=== PATIENT | male | born 1975 | race Caucasian/White ===

== ENCOUNTER 2018-06-14 11:06 | Emergency (ER) | payer OTHER ==
[~2018-06-14] VITALS: Ht 170.2 cm; Wt 84.0 kg
[2018-06-14 11:12] VITALS: BP 125/77
[2018-06-14] MEDS ORDERED: BUPR-86 PO (11:36)
[2018-06-14] MEDS ORDERED: PANT20TA2 PO (11:36)
[2018-06-14] MEDS ORDERED: KETOROLAC 30 MG/1 ML ONE (11:42)
[2018-06-14] MEDS ORDERED: KETOROLAC 30 MG/1 ML IM ONE (12:00)
== END 2018-06-14 12:58 | disposition home or self-care (01) ==
LOC: ED 12:52
DX: M47.22 Other spondylosis with radiculopathy, cervical region (principal); M25.512 Pain in left shoulder; M54.6 Pain in thoracic spine; M79.602 Pain in left arm
CPT/HCPCS: 72050; 96372; 99284; J1885

== ENCOUNTER 2018-09-15 02:38 | Inpatient (IN) | payer OTHER ==
[~2018-09-15] VITALS: Ht 172.7 cm; Wt 91.0 kg
[~2018-09-15 02:38] MED LIST: BUPR-86 PO; PANT20TA2 PO
[2018-09-15] MEDS ORDERED: MORPHINE SULFATE 4 MG/ML, 1ML ONE ×2 (03:19→03:48)
[2018-09-15] MEDS ORDERED: ONDANSETRON ODT 4 MG ONE (03:19)
[2018-09-15] MEDS: MORPHINE SULFATE 4 MG/ML, 1ML IVPush PRN ×2 (03:23→03:54)
[2018-09-15 03:26] LABS: BASOPHILS # (AUTO) 0.12 x10^3/uL (0-0.1); BASOPHILS % (AUTO) 1 % (0-1); EOSINOPHILS # (AUTO) 0.16 x10^3/uL (0-0.4); EOSINOPHILS % (AUTO) 1 % (1-7); LYMPHOCYTES # (AUTO) 3.79 x10^3/uL (1-3.4); LYMPHOCYTES % (AUTO) 31 % (22-44); MD NO; MEAN CORPUSCULAR HEMOGLOBIN 30.7 pg (27.5-34.5); MEAN CORPUSCULAR HGB CONC 34.4 g/dL (33.2-36.2); MEAN CORPUSCULAR VOLUME 89.2 fL (81-97); MEAN PLATELET VOLUME 8.7 fL (7.4-10.4); MONOCYTES # (AUTO) 0.97 x10^3/uL (0.2-0.8); MONOCYTES % (AUTO) 8 % (2-9); NEUTROPHILS # (AUTO) 7.37 x10^3/uL (1.8-6.8); NEUTROPHILS % (AUTO) 59 % (42-75); PLATELET COUNT 223 x10^3/uL (130-400); RED BLOOD COUNT 4.98 x10^6/uL (4.38-5.82); RED CELL DISTRIBUTION WIDTH 13.8 % (9.4-14.8)
[2018-09-15 03:27] LABS: MICROSCOPIC NOT IND
[2018-09-15] MEDS ORDERED: ONDANSETRON ODT 4 MG PO ONE (03:30)
[2018-09-15] MEDS ORDERED: SODIUM CHLORIDE FLUSH 10ML SYR IVF ONE (03:30)
[2018-09-15 03:31] LABS: CULTURE INDICATED? NO
[2018-09-15 03:38] LABS: ALANINE AMINOTRANSFERASE 31 U/L (12-78); ALBUMIN 3.8 g/dL (3.4-5.0); ANION GAP 11 mmol/L (5-15); CALCIUM 8.6 mg/dL (8.5-10.1); CHLORIDE 108 mmol/L (98-107)
[2018-09-15 03:41] LABS: ALKALINE PHOSPHATASE 57 U/L (45-117); BILIRUBIN,TOTAL 0.3 mg/dL (0.2-1.0); CREATININE 0.99 mg/dL (0.7-1.3); TOTAL PROTEIN 7.1 g/dL (6.4-8.2)
[2018-09-15] MEDS ORDERED: CEFTRIAXONE PMX 1GM/50ML 50 ML ONE (05:09)
[2018-09-15] MEDS ORDERED: MULT1TAB88 PO (05:18)
[2018-09-15] MEDS ORDERED: MORPHINE SULFATE 4 MG/ML, 1ML IVPush PRN ×3 (05:30→17:00)
[2018-09-15] MEDS ORDERED: CEFTRIAXONE 1,000 MG in SODIUM CHLORIDE 0.9% 50 ML IV ONE (05:30)
[2018-09-15] MEDS ORDERED: ONDANSETRON ODT 4 MG PO PRN ×2 (05:30→09:30)
[2018-09-15] MEDS ORDERED: SODIUM CHLORIDE FLUSH 10ML SYR IVF PRN (05:30)
[2018-09-15] MEDS ORDERED: CEFTRIAXONE PMX 1GM/50ML 50 ML IV ONE (06:00)
[2018-09-15 07:34] VITALS: BP 123/78
[2018-09-15] MEDS: SODIUM CHLORIDE 0.9% 1,000 ML IV SCH ×2 (09:45→17:30)
[2018-09-15 09:48] VITALS: BP 112/76
[2018-09-15] MEDS: morphine SULFATE 10 MG/ML, 1ML IVPush PRN ×3 (11:34→21:33)
[2018-09-15] MEDS ORDERED: BUPIVACAINE/PF-EPI 0.5% 1:200K ONE (14:16)
[2018-09-15 14:21] VITALS: BP 115/75
[2018-09-15] MEDS ORDERED: MIDAZOLAM 1 MG/ML, 2ML ONE (14:33)
[2018-09-15] MEDS ORDERED: FENTANYL PF 250 MCG/5ML ONE (14:34)
[2018-09-15] MEDS ORDERED: ROCURONIUM 10 MG/ML,10ML ONE (14:54)
[2018-09-15] MEDS ORDERED: ONDANSETRON 2MG/ML, 2ML IV PRN (15:30)
[2018-09-15] MEDS ORDERED: LABETALOL 5MG/ML, 20ML IV PRN (15:30)
[2018-09-15] MEDS ORDERED: PROMETHAZINE 25 MG/ML, 1ML IV PRN (15:30)
[2018-09-15] MEDS ORDERED: PROMETHAZINE 25 MG SUPP PR PRN (15:30)
[2018-09-15] MEDS ORDERED: DIPHENHYDRAMINE 50 MG/ML, 1ML IVPush PRN (15:30)
[2018-09-15] MEDS ORDERED: EPHEDRINE 50 MG/ML, 1ML IM PRN (15:30)
[2018-09-15] MEDS ORDERED: OXYcodone 5 MG/5 ML ORAL.SOL UDC PO PRN (15:30)
[2018-09-15] MEDS ORDERED: MIDAZOLAM 1 MG/ML, 2ML IV PRN (15:30)
[2018-09-15] MEDS ORDERED: PROMETHAZINE 12.5 MG SUPP PR PRN (15:30)
[2018-09-15] MEDS ORDERED: ONDANSETRON ODT 8 MG PO PRN (15:30)
[2018-09-15] MEDS ORDERED: MEPERIDINE/PF 25MG/0.5ML IVPush PRN (15:30)
[2018-09-15] MEDS ORDERED: EPHEDRINE 50 MG/ML, 1ML IVPush PRN (15:30)
[2018-09-15] MEDS ORDERED: DEXAMETHASONE 4 MG/ML, 1ML ONE (16:15)
[2018-09-15] MEDS ORDERED: ONDANSETRON 2MG/ML, 2ML ONE (16:15)
[2018-09-15] MEDS ORDERED: SUCCINYLCHOLINE 20 MG/ML, 10ML ONE (16:15)
[2018-09-15] MEDS ORDERED: PROPOFOL 10 MG/ML, 20ML ONE ×2 (16:15)
[2018-09-15] MEDS ORDERED: FENTANYL PF 100 MCG/2ML ONE (16:50)
[2018-09-15] MEDS ORDERED: OXYcodone 5 MG/5 ML ORAL.SOL UDC ONE (16:50)
[2018-09-15] MEDS ORDERED: ACETAMINOPHEN 650 MG/20.3 ML UDC PO PRN (17:00)
[2018-09-15] MEDS ORDERED: ONDANSETRON 2MG/ML, 2ML IVPush PRN (17:00)
[2018-09-15] MEDS: LABETALOL 5MG/ML, 20ML IVPush SCH (17:00)
[2018-09-15] MEDS: FENTANYL PF 100 MCG/2ML IV PRN ×2 (17:06→17:15)
[2018-09-15] MEDS ORDERED: MEPERIDINE/PF 50 MG/ML ONE (17:18)
[2018-09-15] MEDS: OXYcodone 5 MG/5 ML ORAL.SOL UDC PO PRN ×2 (19:40→23:38)
[2018-09-15 19:53] VITALS: BP 117/76
[2018-09-15] MEDS: POTASSIUM CHLORIDE 20 MEQ in D5%-0.45% NACL 1,000 ML IV SCH (20:51)
[2018-09-16 00:07] VITALS: BP 116/63
[2018-09-16] MEDS: LABETALOL 5MG/ML, 20ML IVPush SCH ×2 (01:00→08:58)
[2018-09-16] MEDS: POTASSIUM CHLORIDE 20 MEQ in D5%-0.45% NACL 1,000 ML IV SCH (03:05)
[2018-09-16] MEDS: OXYcodone 5 MG/5 ML ORAL.SOL UDC PO PRN ×2 (03:23→07:38)
[2018-09-16] MEDS: morphine SULFATE 10 MG/ML, 1ML IVPush PRN (04:57)
[2018-09-16 05:56] LABS: BASOPHILS # (AUTO) 0.03 x10^3/uL (0-0.1); BASOPHILS % (AUTO) 0 % (0-1); EOSINOPHILS # (AUTO) 0.01 x10^3/uL (0-0.4); EOSINOPHILS % (AUTO) 0 % (1-7); LYMPHOCYTES # (AUTO) 1.35 x10^3/uL (1-3.4); LYMPHOCYTES % (AUTO) 8 % (22-44); MD NO; MEAN CORPUSCULAR HEMOGLOBIN 30.7 pg (27.5-34.5); MEAN CORPUSCULAR HGB CONC 34.1 g/dL (33.2-36.2); MONOCYTES # (AUTO) 1.25 x10^3/uL (0.2-0.8); MONOCYTES % (AUTO) 8 % (2-9); NEUTROPHILS # (AUTO) 13.41 x10^3/uL (1.8-6.8); NEUTROPHILS % (AUTO) 84 % (42-75); PLATELET COUNT 196 x10^3/uL (130-400); RED BLOOD COUNT 4.56 x10^6/uL (4.38-5.82); RED CELL DISTRIBUTION WIDTH 13.6 % (9.4-14.8)
[2018-09-16 06:55] VITALS: BP 120/71
[2018-09-16] MEDS ORDERED: OXYC-302 PO (09:26)
== END 2018-09-16 10:10 | disposition home or self-care (01) | DRG 419 ==
LOC: ED 05:32 → EDIP 06:04 → 4NOR 06:10 → OBSVTOIN 16:55 → DCLOUNGE 09-16 09:52
PROVIDERS: ADMIT Surgery; ATTEND Surgery
PROC: 0FT44ZZ Resection of Gallbladder, Percutaneous Endoscopic Approach (ICD-10-PCS; principal; 2018-09-15 15:00)
DX: K80.66 Calculus of gallbladder and bile duct with acute and chronic cholecystitis without obstruction (principal); K42.9 Umbilical hernia without obstruction or gangrene; Z72.89 Other problems related to lifestyle
CPT/HCPCS: 36415; 76700; 80053; 81003; 83690; 85025; 88304; 96374; 96375; 96376; C1729; G0378; J0696; J1100; J2175; J2250; J2405; J2704; J3010; J3480; Q0162; J0330; J2270; J7030